=== PATIENT | female | born 1945 ===

== ENCOUNTER 2018-09-18 01:57 | Outpatient (CLI) | payer MEDICARE, OTHER | END 2018-09-18 23:59 | disposition home or self-care (01) | LOC: DIABETIC 01:57 | PROVIDERS: ATTEND Student in an Organized Health Care Education/Training Program | DX: E11.65 Type 2 diabetes mellitus with hyperglycemia (principal); Z88.1 Allergy status to other antibiotic agents; Z79.899 Other long term (current) drug therapy | CPT/HCPCS: G0108 ==